=== PATIENT | male | born 1950 | race Caucasian/White ===

== ENCOUNTER 2020-06-06 06:24 | Observation (INO) ==
--- NOTE | 2020-05-20 13:28 | PAT Medication Instructions ---
Medication Instructions Date of Service May 20, 2020 Home Medications allopurinol 100 mg tablet 100 mg PO QAM aspirin 81 mg tablet,delayed release 81 mg PO QPM losartan 50 mg tablet 50 mg PO QAM yeiigzgy-yjs-bphve acid 0.4 mg-lycopene 300 mcg-lutein 250 mcg tablet 1 tab PO QAM rosuvastatin 10 mg tablet 10 mg PO QPM ASK your prescriber and surgeon aspirin 81 mg tablet,delayed release 81 mg PO QPM DO NOT take the morning of surgery losartan 50 mg tablet 50 mg PO QAM dphedium-lmg-cmrpi acid 0.4 mg-lycopene 300 mcg-lutein 250 mcg tablet 1 tab PO QAM Take morning of surgery With a small sip of water, OTHERWISE NOTHING TO EAT OR DRINK AFTER MIDNIGHT: allopurinol 100 mg tablet 100 mg PO QAM Take evening before surgery rosuvastatin 10 mg tablet 10 mg PO QPM Other Notes If you have any questions please call us at [phone] or [phone] or [phone] or [phone]
--- NOTE | 2020-05-22 10:05 | Anesthesiology Consultation ---
Date of Service May 22, 2020 Assessment & Plan (1) Encounter for pre-operative examination: Chart Review Chart Review: Acceptable Risk for Surgery (pending preop Covid testing) and Patient seen in Pre Admission Testing Per PAT appt 05/22/20, patient denies any recent travel. Pt scheduled for preop Covid testing 06/03/20. Educated on importance of self quarantining, social distancing and wearing mask in public both for the patient and household contacts. Seen by PCP 05/15/2020 = patient seen for preop clearance. " The patient appears to be medically stable for planned surgical procedure." Hypertension and hyperlipidemia stable. Teaching & Discussion Pre-Anesthesia Teaching/Discussion Notes: Instructed NPO after midnight before surgery,except medications with 15 cc of water. Medication instructions provide d according to the PAT guidelines. History Surgery Operation Date: 06/06/20 07:15 Proposed Procedures p Laparoscopic Robotic Assisted Radical Retropubic Prostatectomy, Possible Open, Possible Pelvic Lymph Node Disection - Abrahan Maguire, Height/Weight Height: 6 ft 1 in Weight: 132.2 kg Allergies Allergy/AdvReac Type Severity Reaction Status Date / Time latex Allergy Rash Verified 05/14/20 15:05 atorvastatin [From Lipitor] AdvReac Leg Verified 05/22/20 10:02 numbness fish oil AdvReac Gastrointestinal Verified 05/14/20 15:05 Upset simvastatin [From Zocor] AdvReac Elevated Verified 05/22/20 10:02 LFTs Entex Allergy Intermediate Vision Uncoded 05/22/20 10:02 issues Medications Home Medications Medication Instructions Recorded Confirmed Last Taken allopurinol 100 mg tablet 100 mg PO QAM 12/05/19 05/14/20 Unknown aspirin 81 mg tablet,delayed 81 mg PO QPM 12/05/19 05/14/20 Unknown release losartan 50 mg tablet 50 mg PO QAM 12/05/19 05/14/20 Unknown wsuhaceh-rva-plmha acid 0.4 1 tab PO QAM 12/05/19 05/14/20 Unknown mg-lycopene 300 mcg-lutein 250 mcg tablet rosuvastatin 10 mg tablet 10 mg PO QPM 12/05/19 05/14/20 Unknown Past Medical History Medical History Gout No recent flares EYAK (hard of hearing) Hyperlipidemia Hypertension Prostate cancer Spinal stenosis Lumbar area Exercise / Class Metabolic Activity II 4-5 Yardwork/Stairs/Walk up hill (one fight of stairs- no chest pain or SOB) Past Family History Family History Father Prostate cancer Diabetes Hypertension Other No family history of adverse response to anesthesia Past Surgical History Surgical History H/O foot surgery History of arthroscopy of left knee History of colonoscopy History of lumbar surgery History of prostate biopsy History of surgery removal of multiple lipomas History of tooth extraction Past Anesthesia History No Hx of Anesthesia Complications and No Family Hx of Anesthesia Complications History of PONV No Hx of PONV and No Hx of Motion Sickness Social History Smoking Status: Former smoker Do You Dip or Chew Tobacco: No Smoking End Date: quit in his 20s Hx Alcohol Use: Yes alcohol intake frequency: holidays/special occasions only Hx Substance Use: No substance use type: does not use Review of Systems Patient denies chest pain, shortness of breath, dyspnea on exertion, reflux, cough, wheezing, palpitations. No hx of seizures, stroke, [place], apnea/snoring. No hx of blood clots or blood transfusions Physical Exam Vital Signs VITALS BP 136/83 P 55 TEMP 98.4 SP02 94% on RA RESP 18 Constitutional no acute distress ENMT Mouth: no TMJ clicking Thyromental Distance: < 3.5 Finger Breadths Mallampati Class: I (smaller airway ) Capped right side top tooth Did encourage patient to shave facial hair Neck + thick neck; neck extension not limited Respiratory normal respiratory effort; no respiratory distress Auscultation: lungs clear to auscultation bilaterally; no wheezes Cardiovascular Rate/Rhythm: regular rate and regular rhythm Heart Sounds: no murmur Vessels: no carotid bruit Musculoskeletal Spine: no pain with cervical ROM Neurologic moves all extremities Psychiatric Orientation: alert Testing Laboratory Results 05/22/20 09:57 05/22/20 09:57 Urine Color Yellow 05/22/20 09:57 Urine Appearance Clear (Clear) 05/22/20 09:57 Urine pH 5.5 (4.5-7.5) 05/22/20 09:57 Ur Specific [place] 1.010 (1.000-1.030) 05/22/20 09:57 Urine Protein Negative (Negative) 05/22/20 09:57 Urine Glucose (UA) Negative (Negative) 05/22/20 09:57 Urine Ketones Negative (Negative) 05/22/20 09:57 Urine Nitrite Negative (Negative) 05/22/20 09:57 Ur Leukocyte Esterase Negative (Negative) 05/22/20 09:57 Blood Type A Negative 05/22/20 09:57 Antibody Screen NEGATIVE 05/22/20 09:57 Hgb A1c 04/16/20= 6.1 Electrocardiogram Date: 05/22/20 Findings: + SB @ (56) Chest X-Ray Date: 05/14/20 Findings: + NAD
[2020-05-22 10:44] LABS: Basophils # (auto) 0.01 K/uL (0-0.2); Basophils % (auto) 0.1 %; Eosinophils % (auto) 2.9 %; Hematocrit (blood only) 42.9 % (42-52); Hemoglobin 14.5 g/dL (14.0-18.0); Immature Granulocytes # (auto) 0.01 K/uL (0.00-0.02); Immature Granulocytes % (auto) 0.1 %; Lymphocytes # (auto) 2.19 K/uL (1.2-3.4); Lymphocytes % (auto) 31.4 %; Mean Corpuscular Hemoglobin 28.6 pg (25-34); Mean Corpuscular Hgb Conc 33.8 g/dL (32-36); Mean Corpuscular Volume 84.6 fL (80-100); Mean Platelet Volume 9.6 fL (7.4-10.4); Monocytes # (auto) 0.61 K/uL (0.11-0.59); Monocytes % (auto) 8.8 %; Neutrophils # (auto) 3.95 K/uL (1.4-6.5); Neutrophils % (auto) 56.7 %; Platelet Count 157 K/uL (130-400); RDW Coefficient of Variation 14.1 % (11.5-14.5); RDW Standard Deviation 43.5 fL (36.4-46.3); Red Blood Count 5.07 M/uL (4.7-6.1); White Blood Count 6.97 K/uL (4.8-10.8)
[2020-05-22 10:54] LABS: BUN Creatinine Ratio 19.7 (10-20); Calcium 9.1 mg/dl (8.5-10.1); Creatinine Clr Calc Pharmacy 98.8 ml/min; Est GFR (African American) 88.6; Est GFR (Non-African American) 76.5; Potassium 4.1 mmol/L (3.5-5.1)
[2020-05-22 12:08] LABS: Appearance Urine Clear (Clear); Bilirubin Urine Negative (Negative); Blood Urine Negative (Negative); Color Urine Yellow; Glucose Urine UA Negative (Negative); Ketones Urine Negative (Negative); Leukocyte Esterase Urine Negative (Negative); Nitrite Urine Negative (Negative); Protein Urine Negative (Negative); Urobilinogen Urine Negative (Negative); pH Urine 5.5 (4.5-7.5)
--- NOTE | 2020-05-23 09:24 | Electrocardiogram Report ---
Test Reason : Blood Pressure : / mmHG Vent. Rate : 056 BPM Atrial Rate : 056 BPM P-R Int : 198 ms QRS Dur : 106 ms QT Int : 444 ms P-R-T Axes : 054 -03 028 degrees QTc Int : 428 ms Sinus bradycardia Otherwise normal ECG No previous ECGs available Confirmed by Anmol Vázquez ([id number]) on 05/23/2020 9:23:45 AM Referred By: Abrahan Maguire Confirmed By:Anmol Vázquez
[~2020-06-06 06:24] MED LIST: HEPARIN SOD 5,000 UNIT/0.5 ML VIAL SQ SCH; LACTATED RINGER'S 1,000 ML IV SCH; LR 15ML/HR IV SCH
[2020-06-06] MEDS ORDERED: BUPIVACAINE 0.5 % 5 MG/1 ML MPF 30ML VIAL ONE (06:57)
--- NOTE | 2020-06-06 07:09 | History & Physical Bridge Note ---
Date of Service June 06, 2020 History & Physical Bridge Note I have examined the patient, reviewed the History & Physical and in the interval since the performance of the History & Physical I have noted the following changes of clinical significance: no changes noted
[2020-06-06] MEDS ORDERED: MIDAZOLAM HCL 1 MG/ML 2ML VIAL ONE (07:35)
[2020-06-06] MEDS ORDERED: ROCURONIUM BROMIDE 10 MG/ML 5 ML VIAL IV ONE ×2 (07:35→10:14)
[2020-06-06] MEDS ORDERED: fentaNYL citrate 100 MCG/2 ML VIAL ONE ×3 (07:35→13:11)
[2020-06-06] MEDS ORDERED: LIDOCAINE HCL 2% 2 ML VIAL/AMP(20MG/ML) INFIL ONE (07:35)
[2020-06-06] MEDS ORDERED: ONDANSETRON INJ 2 MG/ML 2 ML VIAL ONE (07:35)
[2020-06-06] MEDS ORDERED: PROPOFOL IV EMULSION 10 MG/ML 20 ML VIAL IV ONE (07:35)
[2020-06-06] MEDS ORDERED: ATROPINE SULFATE 0.1 MG/ML 10ML SYR IV PRN (07:59)
[2020-06-06] MEDS ORDERED: HYDROmorphone INJ 2 MG/ML SYR/VIAL IV PRN (07:59)
[2020-06-06] MEDS ORDERED: PROMETHAZINE HCL 12.5 MG in SODIUM CHLORIDE 0.9% 50 ML IV PRN (07:59)
[2020-06-06] MEDS ORDERED: ONDANSETRON INJ 2 MG/ML 2 ML VIAL IV PRN ×2 (07:59→15:26)
[2020-06-06] MEDS ORDERED: ePHEDrine sulfate 50 MG/ML AMP IV PRN (07:59)
[2020-06-06] MEDS: CEFAZOLIN 2000MG 2,000 MG/15 ML SYR IV SCH ×2 (09:32→17:07)
[2020-06-06] MEDS ORDERED: FLOSEAL HEMOSTATIC MATRIX 10ML TOP ONE (11:57)
[2020-06-06] MEDS ORDERED: SURGICEL ABSORB HEMOSTAT 2IN X 14IN TOP ONE (12:13)
--- NOTE | 2020-06-06 13:11 | Post Operative Brief Note ---
PG Immediate Post Op with CF Date of Surgery June 06, 2020 Pre & Post Diagnosis Operation Date: 06/06/20 08:35 Pre-Op Diagnosis: Prostate Cancer Post-Op Diagnosis: Prostate Cancer I identified the patient and participated in the time-out.: Yes Procedure Operation Date: 06/06/20 08:35 Actual Procedures p Laparoscopic Robotic Assisted Radical Retropubic Prostatectomy - Abrahan Maguire DO Surgeon Abrahan Maguire, II, DO Water Resource Specialist Amalia Estimated Blood Loss 100 Findings Consistent with Post-Op Diagnosis Specimens Specimen Description: A: Prostate and seminal vesicles Drains [place] Catheter Anesthesia Type General Complications none Disposition Disposition: Recovery Room Overlapping Procedure I was present for: the critical portions of procedure. I was immediately available: during the entire case. Back up surgeon: was not required during procedure.
--- NOTE | 2020-06-06 13:28 | Operative Report ---
PG Post Operative Report Pre & Post Diagnosis Operation Date: 06/06/20 08:35 Pre-Op Diagnosis: Prostate Cancer Post-Op Diagnosis: Prostate Cancer I identified the patient and participated in the time-out.: Yes Procedure Operation Date: 06/06/20 08:35 Actual Procedures p Laparoscopic Robotic Assisted Radical Retropubic Prostatectomy - Abrahan Maguire DO Surgeon Abrahan Maguire, II, DO Facility Service Associate Amalia Estimated Blood Loss 100 Findings Consistent with Post-Op Diagnosis Specimens Prostate and Seminal Vesicle Drains 18 Gay catheter. Anesthesia Type General Complications none Disposition Disposition: Recovery Room Indications Patient with Low Risk Prostate Cancer. Risk and benefits were discussed at length. Patient elected to undergo robotic assisted laparoscopic Radical Prostatectomy. Description of Procedure The patient was brought to the operative suite and placed under general endotracheal intubation anesthesia in the supine position. The patient was transferred to the dorsal lithotomy position. At this point, the patient prepped and draped in the usual sterile fashion and a timeout was completed. Preoperative antibiotics of Ancef 2 grams had been given. MYRA's and SCD's were placed on the patient's lower extremities. A catheter was placed using sterile technique. With the time out completed the patient was placed into Trendelenburg and the skin at the umbilicus was anesthetized. A small incision was made superior to the umbilicus. A Varess Needle was placed and confirmed to be in the abdominal cavity. Water drop test passed. The Abdominal cavity was insufflated to 15 mmHG. The camera port was then placed. A laparoscopic camera was placed into the port and the abdominal cavity inspected. No concerning features were noted. At this point, the skin was marked for port placement and 8mm working ports were placed. The skin was anesthetized down to fascia and an approx 1cm incision was made to place the 3 x 8mm ports. A 10mm and 5 mm assistant superintendent for curriculum ports were also placed in similar fashion under direct visualization. The patient was transferred into steep Trendelenburg position and the legs lowered. The robot was positioned and docked. The camera was placed and all trocars were positioned under direct visualization. Amalia CHARLES was integral in port placement, camera utilization, and docking procedure. She remained in sterile attire and then proceeded to assist the remainder of the case. At this point, I transitioned to the robotic console. At this point, the sigmoid colon was mobilized superiorly and the pelvis assessed. Adhesions were freed to allow mobilization. The peritoneum in the midline was opened between rectum and bladder and the vas deferens and seminal vesicles exposed. These were dissected with blunt technique. The vas was clipped and cut and mobilized. Cautery was used to assist dissection avoiding the tissue posteriorly near the rectum. The tissues lateral to the seminal vesicles were clipped with a hemolock and all bleeding controlled. This was taken as inferior as possible from this position. The medial umbilical ligaments were then identified and the peritoneum directly lateral on the right followed by the left was opened. The tissues were bluntly dissected to free the bladder's lateral attachments. This was taken down to the pubic bone and exposed the endopelvic fascia bilaterally. The medial ligaments were cut and the bladder dropped. The tissues was dissected anterior to the prostate. The endopelvic fascia on each side was then opened and the lateral edges of the prostate dissected. The Dorsal venous complex of the prostate was dissected and assessed. A 2-0 PDS suture was used to ligate the vessels. A suspension stitch was used and clipped. Electrocautery was used to cut the anterior attachments, the puboprostatic ligaments, and venous tissues. The gay was manipulated to better visual the bladder neck and dissection was taken using electrocautery. The bladder neck was opened and dissected from the prostate. The UO were identifed and dissection taken in a direction to avoid each side. The vas stump and seminal vesicles were exposed and used to assist in traction to dissect. The prostatic pedicles were better exposed. The posterior prostate was dissected. An attempt was made to limit cautery and utilize cold dissection of the lateral posterior prostate to attempt preservation of the neurovascular bundle bilaterally. Hemolock clips were utilized to clip the prostatic pedicle bilaterally. The dissection was taken to the apex of the prostate. The anterior prostate was released and the urethra exposed. Cold cutting was used to open the anterior portion and expose the catheter. This was removed and the urethra incised. The prostate was further freed and grasped and removed from the field. The entire dissection bed was inspected.Hemostatic agent was placed in the region. No areas of injury or bleeding was noted. Care was taken to examine the perirectal tissues. A probe was placed and no injuries or other issues were observed. The bladder neck and urethra were then approximated with a running barbed suture starting at the 5 o'clock position and moving to the 12 o'clock on each side. This was tied at the anterior portion. A leak test was completed without any evidence of issues. The entire dissection space was inspected one final time. Hemostatic agent Surgicel and Floseal were placed. No bleeding or injuries or areas of concern were noted. No tumor or other concerning features were noted. At this point, the robot was undocked and moved away from the patient. The patient was taken out of Trendelenberg. The port sites were all assessed laparoscopically. The endoscopic bag was moved into the midline port. The 10mm port site was closed with the Caesar Jauregui device. The other ports were assessed and no issues observed. The umbilical incision was opened further exposing fascia which was then opened in order to removed the prostate in the bag. The prostate was removed. A running PDS suture was used to close fascia. The skin at each site was closed with the surgical stapler. The area was cleaned and washed. The patient was cleaned and bandaged, aroused from anesthesia, and transferred to the pacu in stable condition having tolerated the procedure well with no complications. I was present and participated in all aspects of the procedure. MELVIN Holland was critical in the portions as mentioned above. Will plan to observe postoperatively and monitor. Gay to be remain in place until followup. I attest to the content of the Intraoperative Record and any orders documented therein. Any exceptions are noted below.
[2020-06-06] MEDS: fentaNYL citrate 100 MCG/2 ML VIAL IV PRN ×2 (13:35→13:54)
--- NOTE | 2020-06-06 15:03 | Anesthesiology Progress Note ---
Date of Service June 06, 2020 Anesthesia Post Procedure Vital Signs Vital Signs: Temp Pulse Pulse Resp BP Pulse Ox 06/06/20 14:25 36.3 C L 55 L 20 119/75 99 06/06/20 14:15 36.1 C L 50 L 12 143/71 H 99 06/06/20 14:05 51 L 17 127/80 99 06/06/20 13:55 51 L 15 131/73 99 06/06/20 13:45 54 L 12 138/81 100 06/06/20 13:35 58 L 17 145/80 H 97 06/06/20 13:27 36.0 C L 55 L 18 127/67 96 06/06/20 07:07 36.7 C 67 18 146/84 H 96 Pain Intensity Abdomen: Pain Intensity: 4 Transfer of Care Handoff Completed per policy Notes Mental Status: alert / awake / arousable and participated in evaluation Patient Amnestic to Procedure: Yes Nausea / Vomiting: adequately controlled Pain: adequately controlled Airway Patency, RR, SpO2: stable & adequate BP & HR: stable & adequate Hydration State: stable & adequate Anesthetic Complications: no major complications apparent and Pt Satisfied with anesthetic care
[2020-06-06] MEDS ORDERED: OXYCODONE HCL IR 5 MG TAB (IMMEDIATE RELEASE) PO PRN (15:26)
[2020-06-06] MEDS ORDERED: MoRPHine SULFATE 2 MG/ML CARP IV PRN (15:31)
[2020-06-06] MEDS: DOCUSATE SODIUM 100 MG CAP PO SCH ×2 (16:35→20:03)
[2020-06-06] MEDS: LOSARTAN POTASSIUM 50 MG TAB PO SCH (16:36)
[2020-06-06] MEDS: CEROVITE ADV FORMULA TAB PO SCH (16:36)
[2020-06-06] MEDS: D5W AND 1/2NSS + 20MEQ KCL 20 MEQ/1,000 ML BAG IV SCH (16:36)
[2020-06-06] MEDS ORDERED: ROSUVASTATIN CALCIUM 10 MG TAB PO SCH (21:00)
[2020-06-07] MEDS: CEFAZOLIN 2000MG 2,000 MG/15 ML SYR IV SCH ×2 (00:33→08:58)
[2020-06-07] MEDS: D5W AND 1/2NSS + 20MEQ KCL 20 MEQ/1,000 ML BAG IV SCH (02:26)
[2020-06-07 06:35] LABS: Basophils # (auto) 0.01 K/uL (0-0.2); Basophils % (auto) 0.1 %; Eosinophils # (auto) 0.01 K/uL (0-0.5); Eosinophils % (auto) 0.1 %; Hematocrit (blood only) 39.6 % (42-52); Hemoglobin 13.3 g/dL (14.0-18.0); Immature Granulocytes # (auto) 0.02 K/uL (0.00-0.02); Immature Granulocytes % (auto) 0.2 %; Lymphocytes # (auto) 1.81 K/uL (1.2-3.4); Lymphocytes % (auto) 15.5 %; Mean Corpuscular Hemoglobin 28.4 pg (25-34); Mean Corpuscular Hgb Conc 33.6 g/dL (32-36); Mean Corpuscular Volume 84.6 fL (80-100); Mean Platelet Volume 9.9 fL (7.4-10.4); Monocytes # (auto) 0.87 K/uL (0.11-0.59); Monocytes % (auto) 7.5 %; Neutrophils # (auto) 8.93 K/uL (1.4-6.5); Neutrophils % (auto) 76.6 %; Platelet Count 167 K/uL (130-400); RDW Coefficient of Variation 13.9 % (11.5-14.5); RDW Standard Deviation 42.7 fL (36.4-46.3); Red Blood Count 4.68 M/uL (4.7-6.1); White Blood Count 11.65 K/uL (4.8-10.8)
[2020-06-07 07:08] LABS: Albumin Level 2.9 gm/dl (3.4-5.0); BUN Creatinine Ratio 11.4 (10-20); Creatinine Clr Calc Pharmacy 94.1 ml/min; Est GFR (African American) 84.5; Est GFR (Non-African American) 72.9; Potassium 4.1 mmol/L (3.5-5.1)
[2020-06-07 07:11] LABS: Bilirubin,Total 0.8 mg/dl (0.2-1); Globulin 2.9 gm/dl (2.5-4.0); Total Protein 5.8 gm/dl (6.4-8.2)
--- NOTE | 2020-06-07 07:52 | Anesthesiology Progress Note ---
Date of Service June 07, 2020 Anesthesia Post Procedure Vital Signs Vital Signs: Temp Pulse Pulse Resp BP BP Pulse Ox 06/07/20 07:08 37.2 C 69 18 114/73 93 06/07/20 02:30 37.3 C 66 16 99/65 L 95 06/06/20 23:01 37.2 C 78 18 103/68 94 06/06/20 20:01 37.2 C 86 17 107/67 93 06/06/20 17:55 36.6 C 73 16 121/70 93 06/06/20 16:14 36.4 C L 67 17 116/74 93 06/06/20 15:49 36.7 C 63 17 125/77 96 06/06/20 14:50 36.5 C 58 L 14 135/81 96 06/06/20 14:25 36.3 C L 55 L 20 119/75 99 06/06/20 14:15 36.1 C L 50 L 12 143/71 H 99 06/06/20 14:05 51 L 17 127/80 99 06/06/20 13:55 51 L 15 131/73 99 06/06/20 13:45 54 L 12 138/81 100 06/06/20 13:35 58 L 17 145/80 H 97 06/06/20 13:27 36.0 C L 55 L 18 127/67 96 Pain Intensity Abdomen: Pain Intensity: 3 Notes Mental Status: alert / awake / arousable and participated in evaluation Patient Amnestic to Procedure: Yes Nausea / Vomiting: adequately controlled Pain: adequately controlled Airway Patency, RR, SpO2: stable & adequate BP & HR: stable & adequate Hydration State: stable & adequate Anesthetic Complications: no major complications apparent and Pt Satisfied with anesthetic care
[2020-06-07] MEDS: DOCUSATE SODIUM 100 MG CAP PO SCH (08:57)
[2020-06-07] MEDS: CEROVITE ADV FORMULA TAB PO SCH (08:57)
[2020-06-07] MEDS: LOSARTAN POTASSIUM 50 MG TAB PO SCH (08:57)
[2020-06-07] MEDS ORDERED: allopurinoL 100 MG TAB PO SCH (09:00)
--- NOTE | 2020-06-07 10:29 | Urology Progress Note ---
Date of Service June 07, 2020 Assessment & Plan (1) Malignant neoplasm of prostate: 70 yo M POD #1 s/p Laparoscopic Robotic Assisted Radical Retropubic Prostatectomy with Dr. Maguire. - Doing well, progressing as expected - No issues overnight - He is feeling ready for discharge to home today - Will advance diet as tolerated this morning and reassess - Continue OOB, encouraged Incentive Spirometer - Will plan for discharge today if he continues to progress - Expected clinical course reviewed, all questions answered - Follow-up appointments in place Admission and Anticipated Discharge Date Admission Date: June 06, 2020 Subjective 70 yo M POD #1 s/p Laparoscopic Robotic Assisted Radical Retropubic Prostatectomy with Dr. Maguire. Pt examined at bedside this AM. Doing well. No issues overnight. No complaints of pain. Has not utilized pain medication. Tolerating [place] catheter, intact, patent, draining clear yellow urine with minimal blood tinge. Tolerating clear liquid diet. Has been out of bed this morning. No abdominal, flank, or suprapubic pain. No f/c/n/v. No additional urological concerns today. Chart review: Afebrile overnight, creatinine 1.04, WBC 11.65, Hgb 13.3 Review of Systems Constitutional: as per Subjective / HPI Gastrointestinal: as per Subjective / HPI Genitourinary: + as per Subjective / HPI Physical Exam Constitutional: well developed, well nourished and + obese; no acute distress and not ill appearing Respiratory: normal respiratory effort and able to speak in complete sentences; no respiratory distress and no labored breathing Cardiovascular: Extremities: no calf tenderness and no pedal edema Gastrointestinal (Abdomen): Inspection/Auscultation: abdomen normal to inspection; abdomen not distended Percussion/Palpation: abdomen soft; no guarding Musculoskeletal: Head/Neck/Chest: normocephalic and head atraumatic Extremities: extremities normal to inspection Skin: Incisions covered with surgical bandages, C/D/I, no surrounding erythema Neurologic: moves all extremities and awake Psychiatric: Orientation: alert and oriented x 3 Genitourinary: Markham catheter intact, patent, draining clear yellow urine with minimal blood tinge Results & Data ([facility]) Vital Signs (Past 12 Hours) Vital Signs Temp Pulse Resp BP BP Pulse Ox 06/07/20 07:08 37.2 C 69 18 114/73 93 08/14/20 02:30 37.3 C 66 16 99/65 L 95 06/06/20 23:01 37.2 C 78 18 103/68 94 PG Care Time/CCT Total # of Minutes Spent Total Time Spent with Patient: Total time spent is greater than 50% in coordination of care (as documented) at patient's floor/unit and/or counseling patient: Coding Level of Care Code 02811 Subseq Hosp Care Lvl 2 Diagnoses Malignant neoplasm of prostate C61
--- NOTE | 2020-06-13 07:17 | Discharge Summary ---
Date of Service June 13, 2020 Admission HPI Per Admitting Provider See H&P Admission Exam Per Admitting Provider See H&P Principal Diagnosis Prostate Cancer Discharge Exam General: Alert in no acute distress. HEENT: Normocephalic Atraumatic. Inspection normal. Psychologic: Normal affect. Skin: [place] and Dry. No rashes or visible lesions. Abdomen: Soft Non-distended. No rebound or guarding. Discharge Data Allergies Allergy/AdvReac Type Severity Reaction Status Date / Time latex Allergy Rash Verified 06/06/20 07:03 atorvastatin [From Lipitor] AdvReac Leg Verified 06/06/20 07:03 numbness fish oil AdvReac Gastrointestinal Verified 06/06/20 07:03 Upset simvastatin [From Zocor] AdvReac Elevated Verified 06/06/20 07:03 LFTs Entex Allergy Intermediate Vision Uncoded 06/06/20 07:03 issues Procedures Performed Operation Date: 06/06/20 08:35 Actual Procedures p Laparoscopic Robotic Assisted Radical Retropubic Prostatectomy - Abrahan Maguire, DO Hospital Course (1) Malignant neoplasm of prostate: 70 yo M POD #1 s/p Laparoscopic Robotic Assisted Radical Retropubic Prostatectomy with Dr. Maguire. - Doing well, progressing as expected - No issues overnight - He is feeling ready for discharge to home today - Will advance diet as tolerated this morning and reassess - Continue OOB, encouraged Incentive Spirometer - Will plan for discharge today if he continues to progress - Expected clinical course reviewed, all questions answered - Follow-up appointments in place Total Time Total Time Spent Total Time Spent (In Minutes): 10 minutes Total Time Includes: Examination of the Patient, Discharge Planning, Medication Reconciliation and Communication With Other Providers Discharge Plan Discharge Items Patient Disposition: Home - Home Health Services Reason For Visit: Prostate Cancer Discharge Diagnosis: Same Activity: Resume your previous activity Lifting: No more than 50 pounds Bathing Comment: May shower in 1 day, no tub bath or soaking until follow-up Sexual Activity: Wait until after follow-up appointment Exercise/Sports: Wait until after follow-up appointment Driving/Machine Use: No driving while taking prescription pain medication Non-emergency contact: Surgeon and Urologist Call non-emergency contact if: you have any medication questions, your symptoms worsen, your pain is not controlled, your pain is worsening, your pain is unusual for you, your pain is concerning for you, you have a fever and your temperature is above 101.5 Follow-up/Referrals: Abrahan Maguire DO [Physician] - 06/19/20 (phone call) Tomi Marcus DO [Primary Care Provider] - [facility],RN [FER FOR SCHEDULES] - 06/13/20 9:00 am Diet: Regular Addtl Attending Provider Instructions: Please take all medications as prescribed and keep follow-ups as scheduled. Please call our office at [phone] with any questions, concerns or need to reschedule appointments for any reason. We are happy to assist you. While catheter is in place, please wash with warm soapy water and a fresh washcloth twice a day with mild bar soap (Dove, Dial, etc.). Your nursing visit appointment to have your catheter removed should already be made, if you have any question regarding this, please call our office. Complete antibiotics as prescribed, if indicated. It is okay to take AZO (available over the counter) as needed for a few days to relieve burning with urination. This may cause your urine or feces to turn an orangish-color. This is expected. The only exception is if you have been prescribed Pyridium (phenazopyridine), this is the same medication and should not take AZO be taken in addition to prescription version. Please do not drive, drink alcohol or operate machinery while taking prescription pain medication. We recommend continuing a stool softener (i.e. Colace) to prevent constipation/straining for at least two weeks after your procedure. Some blood is to be expected in your urine as you heal, you may even see recurrences of blood in your urine for up to 4-6 months after your procedure. Drink plenty of fluids, avoid sexual or strenuous exercise and do not lift >25 pounds until your follow-up. Call [facility] at [phone] promptly if you experience: Fever of 101F or greater Pain thats not controlled with medicine Trouble urinating or inability to urinate Dark, bloody urine for more than 12 hours Pending Studies at Discharge: Yes (pathology) Stand-Alone Forms: My [employer], Smoking Cessation Medications and DC Order Prescriptions: New oxycodone-acetaminophen [Percocet] 7.5-325 mg tablet 1 tab PO Q8H PRN (Reason: pain) Qty: 14 RF: 0 docusate sodium [Colace] 100 mg capsule 100 mg PO BID Qty: 60 RF: 0 ciprofloxacin HCl 500 mg tablet 500 mg PO BID Qty: 6 RF: 0 Continued aspirin 81 mg tablet,delayed release (DR/EC) 81 mg PO QPM RF: 0 allopurinol 100 mg tablet 100 mg PO QAM RF: 0 losartan 50 mg tablet 50 mg PO QAM RF: 0 rosuvastatin 10 mg tablet 10 mg PO QPM RF: 0 Centrum Silver 0.4-300-250 mg-mcg-mcg tablet 1 tab PO QAM RF: 0 Discharge Orders: Discharge Order (Routine); Ordered 06/07/20 Ordered By: Porsche Holland Admission Data Admit Date/Time: 06/06/20 13:34 Attending Provider: Abrahan Maguire Admit Provider: Abrahan Maguire Primary Care Provider: Tomi Marcus Other Providers: [facility],Home Healthcare Other Interventions: Discharge Summary Assessment (RN) Last Done: 06/07/20 14:01 Coding Level of Care Code D/C Day Management <30 mins Diagnoses Malignant neoplasm of prostate C61
== END 2020-06-07 16:15 | disposition home health service (06) ==
LOC: ASU 06:24 → INTOOBSV 13:34 → 3W 13:34
DX: Z91.040 Latex allergy status; E78.5 Hyperlipidemia, unspecified; Z82.49 Family history of ischemic heart disease and other diseases of the circulatory system; Z79.82 Long term (current) use of aspirin; M10.9 Gout, unspecified; Z11.59 Encounter for screening for other viral diseases; Z83.3 Family history of diabetes mellitus; Z79.899 Other long term (current) drug therapy; Z80.42 Family history of malignant neoplasm of prostate; C61 Malignant neoplasm of prostate; I10 Essential (primary) hypertension; Z88.8 Allergy status to other drugs, medicaments and biological substances